=== PATIENT | male | born 1975 | race Caucasian/White ===

== ENCOUNTER 2016-11-09 18:59 | Emergency (ER) | payer OTHER ==
[~2016-11-09] VITALS: Ht 162.6 cm; Wt 92.1 kg
[2016-11-09 20:35] VITALS: BP 111/74
== END 2016-11-09 20:35 | disposition home or self-care (01) ==
LOC: ED 18:59
DX: L60.0 Ingrowing nail (principal)
CPT/HCPCS: J2001